=== PATIENT | female | born 1965 | race Caucasian/White ===

== ENCOUNTER → 2016-12-26 | Outpatient (CLI) | payer OTHER ==
[~2016-12-26] MED LIST: CALCIUM WITH VI1 TAB PO; ESTRADIOL1 MG PO; LISINOPRIL 5MG T5 MG NG; NAPROXEN SODIU500 MG PO; PAROXETINE HYDR20 MG PO; PRILOSEC40 MG PO; SYNTHROID0.025 MG PO
--- NOTE | 2016-12-26 16:44 | RADIOLOGY REPORT PS360 ---
BONE DENSITOMETRY(HIP:LT SPINE HISTORY: OSTEOPENIA ORDERING PHYSICIAN: Trena Lobo APRN PATIENT AGE: 51 years COMPARISON: 05/20/2015 FINDINGS: The BMD measured at the right femoral neck is 0.861 g/cm squared with a T score of -1.3. This is considered Osteopenic according to the World Health Organization criteria. Fracture risk is Moderate. Treatment is advised. The bone density of the hips is decreased by 2% and the mean density spine is increased by 3% compared to the previous exam IMPRESSION: Osteopenia of the right hip. Recommend follow-up exam December 2018
--- NOTE | 2017-01-02 09:24 | RADIOLOGY REPORT PS360 ---
. DIG MAMM-SCREEN NOAH W/CAD CAD Screening ORDERING PHYSICIAN : Trena Lobo APRN PATIENT AGE: 51 years GENDER: Female COMPARISON: Previous mammograms: December 2009 and May 2015 INDICATION: Routine screening 51-year-old. No hormones no new complaints Family history. Paternal aunt with breast cancerx2 TECHNIQUE: Standard CC and MLO images were obtained. R2 CAD reviewed. FINDINGS: Fairly Dense appearance to the breast tissue here at the central breast retroareolar region again seen bilaterally. Prior films are helpful and reveal there are no significant new findings. RIGHT BREAST: The main portion of the breast appears Stable right breast with no new areas of concern.. However, second review on these images there is a subtle density at the very posterior margin of the breast on MLO view. This could be due to skin fold or other features but it is a subtle change that would benefit from spot views. & ultrasound survey the breast particular persists on spot views. . LEFT BREAST: No new areas of concern The small nodular density at the far lateral left breast has been stable with central lucency compatible with intramammary lymph node. No new findings on left. IMPRESSION: Right breast.: A subtle density at the very deep margin of the image today noted. May merely be overlapping skinfold shadow but is a subtle change and would benefit from spot views to further evaluate. Ultrasound survey deep right breast would be of benefit as well. Left breast: stable follow-up in one year. . BI-RADS CATEGORY: 0_Incomplete: Need additional imaging. RECOMMENDED FOLLOWUP: 12M 12 MONTH FOLLOW-UP (A letter has been sent to the patient regarding results of the study.)
== END ==
LOC: RAD 14:13
DX: Z12.31 Encounter for screening mammogram for malignant neoplasm of breast (principal); M85.88 Other specified disorders of bone density and structure, other site; N92.5 Other specified irregular menstruation
CPT/HCPCS: G0202

== ENCOUNTER → 2017-08-06 | Outpatient (CLI) | payer OTHER ==
[2017-08-06 14:42] LABS: BUN 12 mg/dL (7-18)
[2017-08-06 14:44] LABS: GFR (ESTIMATED) 66 ML/MIN (59-)
[2017-08-06 14:45] LABS: HEMOGLOBIN 12.7 g/dL (12.2-16.2); LYMPH # 1.9 K/mm3 (0.7-4.5); LYMPH % 27.3 % (10-50.0)
== END ==
LOC: LAB 13:27
PROVIDERS: Obstetrics & Gynecology
DX: R10.84 Generalized abdominal pain (principal)